=== PATIENT | male | born 1960 | race Caucasian/White ===

== ENCOUNTER → 2017-09-14 | Outpatient (CLI) | payer OTHER, SELFPAY ==
--- NOTE | 2017-09-14 10:12 | Diagnostic Imaging Report ---
TECHNIQUE: Computed tomography imaging of the LEFT SHOULDER was performed WITHOUT injected contrast. COMPARISON: None available. HISTORY: Pain FINDINGS: Comminuted fracture of the proximal humerus with impacted mildly angulated fracture of the humeral neck. Mildly displaced fracture greater tuberosity without significant angulation. Nondisplaced fracture adjacent to the lesser tuberosity. Small glenohumeral joint effusion. Soft tissue stranding about the shoulder. The acromioclavicular joint is intact. IMPRESSION: Comminuted fracture of the proximal humerus as above with dominant impacted fracture of the humeral neck. Signed by: Dr. Vernon Babb M.D. on 09/14/2017 10:08 AM
== END ==
LOC: CT 08:57
PROVIDERS: ATTEND Specialist
DX: S42.232A 3-part fracture of surgical neck of left humerus, initial encounter for closed fracture (principal)

== ENCOUNTER 2017-09-26 09:29 | Observation (INO) | payer OTHER ==
[2017-09-22 15:15] LABS: ANION GAP 14.3 mmol/L (8-16); BLOOD UREA NITROGEN 20 mg/dL (7-26); BUN/CREATININE RATIO 22 (6-25); CALCIUM 9.3 mg/dL (8.4-10.2); CARBON DIOXIDE 27 mmol/L (22-29); CHLORIDE 103 mmol/L (98-107); CREATININE, SERUM 0.92 mg/dL (0.72-1.25); EST GLOMERULAR FILTRATION RATE > 60 ML/MIN (60-); GLUCOSE 153 mg/dL (74-118); POTASSIUM 4.3 mmol/L (3.5-5.1); SODIUM 140 mmol/L (136-145)
[~2017-09-26] VITALS: Ht 172.7 cm; Wt 131.5 kg
[2017-09-26] VITALS (8 sets, daily range): BP systolic 141–170; BP diastolic 69–94
[~2017-09-26 09:29] MED LIST: CEFAZOLIN SOD 2 GM/D5W 50ML 50 ML IV ONE; JARDIANCE PO; LOSARTAN POTASS25 MG PO; METFORMIN HCL500 M2 PO; NOVOLOG100 UNIT/1 SQ; TRESIBA SC; VICTOZA 3-0.6 MG/0.1 PO
--- OUTSIDE RECORDS SUMMARY | 2017-09-26 09:31 | XMS REPORT ---
[facility] Address Unknown Phone Unavailable Care Team Providers Care Food Editor Name Role Phone LORENZO ROWE Unavailable Unavailable Problems This patient has no known problems. Allergies, Adverse Reactions, Alerts This patient has no known allergies or adverse reactions. Medications This patient has no known medications. Results Test Description Test Time Test Comments Text Results Atomic Results Result Comments CT SHOULDER LEFT WO [address] [address] Patient Name: KIMMIE HOPPER MR #: [id number] : 1960 Age/Sex: 56/M Req # : [id number] Adm Physician: Ordered by: LORENZO ROWE MD Report #: [id number] Location: CT Room/Bed: Procedure: [id number] CT/CT SHOULDER LEFT WO Exam Date: 09/14/17 Exam Time : 909 REPORT STATUS: Signed TECHNIQUE: Computed tomography imaging of the LEFT SHOULDER was performed WITHOUT injected contrast. COMPARISON : None available. HISTORY: Pain FINDINGS: Comminuted fracture of the proximal humerus with impacted mildly angulated fracture of the humeral neck. Mildly displaced fracture greater tuberosity without significant angulation. Nondisplaced fracture adjacent to the lesser tuberosity. Small glenohumeral joint effusion. Soft tissue stranding about the shoulder. The acromioclavicular joint is intact. IMPRESSION: Comminuted fracture of the proximal humerus as above with dominant impacted fracture of the humeral neck. Signed by: Dr. Tanja Desai M.D. on 09/14/2017 10:08 AM Dictated By: TANJA DESAI MD [id number] Transcribed By: CRISTINA on 09/14/17 1008 COPY TO: LORENZO ROWE MD
--- OUTSIDE RECORDS SUMMARY | 2017-09-26 09:31 | XMS REPORT | Clinical Summary ---
Author Author [facility] Address Unknown Phone Unavailable Care Team Providers Care Electrician Substation Supervisor Name Role Phone Asked, Pcp PCP Unavailable Allergies Active Allergy Reactions Severity Noted Date Comments No Known Drug Allergies 02/06/2016 Current Medications Prescription Sig. Disp. Refills Start End Date Status Date INVOKANA 300 mg tablet TK 1 T PO D 0 01/22/20 Active 16 TRESIBA FLEXTOUCH U-200 3 02/06/20 Active 200 unit/mL (3 mL) 16 insulin pen VICTOZA 3-ABBY 0.6 mg/0.1 INJECT 1.8MG UNDER THE 3 02/06/20 Active mL (18 mg/3 mL) pen SKIN DAILY DIRECTED. 16 injector TITRATION PER INSTRUCTION losartan (COZAAR) 50 MG TK 1 T PO QD 1 01/07/20 Active tablet 16 metFORMIN (GLUCOPHAGE) TK 1 T PO BID 0 01/07/20 Active 1000 MG tablet 16 BD INSULIN PEN NEEDLE UF U UTD FID. 3 02/06/20 Active MINI 31 gauge x 3/16" 16 needle BD INSULIN PEN NEEDLE UF USE QID WITH INSULIN PENS 4 01/07/20 Active SHORT 31 gauge x 5/16" 16 needle Active Problems Problem Noted Date S/P arthroscopy of left knee 02/13/2016 Family History Medical History Relation Name Comments Other Father Joint problems Relation Name Status Comments Father Social History Tobacco Use Types Packs/Day Years Used Date Never Smoker Smokeless Tobacco: Former Chew User Alcohol Use Drinks/Week oz/Week Comments No Sex Assigned at Date Recorded Not on file Last Filed Vital Signs Not on file Plan of Treatment Health Maintenance Due Date Last Done Comments COLONOSCOPY 2012 INFLUENZA VACCINE 02/22/2017 Results Not on fileafter 09/25/2016 Insurance Payer Benefit Subscriber ID Type Phone Address Plan / Group AETNA AETNA xxxxxxxxxx HMO HMO,POS,EP O, [place] [address]
[2017-09-26] MEDS ORDERED: BACITRACIN 50,000 UNIT VIAL ONE (09:36)
[2017-09-26] MEDS ORDERED: BUPIVACAINE 0.5%/EPI 30 ML SDV INJ ONE (09:36)
[2017-09-26] MEDS ORDERED: MUPIROCIN 2% OINT 22 GM TUBE ONE (11:07)
[2017-09-26] MEDS ORDERED: DIPHENHYDRAMINE HCL INJ 50 MG/ML VIAL IM/IV PRN (11:30)
[2017-09-26] MEDS ORDERED: ZOLPIDEM TARTRATE 5 MG TAB PO PRN (11:30)
[2017-09-26] MEDS ORDERED: DOCUSATE SODIUM 100 MG CAP PO PRN (11:30)
[2017-09-26] MEDS ORDERED: HYDROCODONE/APAP 5MG-325MG TAB PO PRN (11:30)
[2017-09-26] MEDS ORDERED: ACETAMINOPHEN 650 MG SUPP PR PRN (11:30)
[2017-09-26] MEDS ORDERED: PROMETHAZINE HCL (IM) 25 MG/ML VIAL INJ PRN (11:30)
[2017-09-26] MEDS ORDERED: ONDANSETRON HCL INJ 2 MG/ML VIAL IV PRN (11:30)
--- OUTSIDE RECORDS SUMMARY | 2017-09-26 12:41 | XMS REPORT | Clinical Summary ---
Author Author [facility] Organization [facility] Address Unknown Phone Unavailable Care Team Providers Care Burr Filer Name Role Phone Asked, Pcp PCP Unavailable [...] AETNA AETNA xxxxxxxxxx HMO HMO,POS,EP O, [place] [address]
[2017-09-26] MEDS: CEFAZOLIN SOD 1 GM VIAL IV SCH ×2 (13:27→21:42)
[2017-09-26] MEDS: ACETAMINOPHEN 1000 MG/100 ML IV SCH ×3 (13:27→23:31)
[2017-09-26] MEDS: SODIUM CHLORIDE 0.9% 1000ML 1,000 ML IV SCH ×2 (13:27→21:42)
[2017-09-26] MEDS ORDERED: LIDOCAINE 2% /EPINEPHRINE 20 ML SDV INJ ONE (13:50)
[2017-09-26] MEDS ORDERED: ROPIVACAINE 0.5% 5 MG/ML 30 ML SDV ONE (13:50)
[2017-09-26] MEDS ORDERED: EPINEPHRINE HCL INJ 1 MG/ML AMP ONE (13:50)
[2017-09-26] MEDS ORDERED: MIDAZOLAM HCL 2 MG/2 ML VIAL ONE (13:51)
[2017-09-26] MEDS ORDERED: FENTANYL CITRATE/PF 100MCG/2 ML INJ ONE (13:51)
[2017-09-26] MEDS ORDERED: CEFAZOLIN SOD 1 GM/NS 50ML 50 ML IV SCH (14:00)
--- NOTE | 2017-09-26 17:15 | Operative Report ---
DATE OF PROCEDURE: September 26, 2017 MARKETING TECHNOLOGY COORDINATOR: Rodriguez Hernandez PA-C The patient was brought to the operating room for induction of anesthesia. Throughout this case, my PA's assistance was necessary for retraction of soft tissue and positioning of the extremity. This allows for efficient and technically successful execution of the operation and is considered medically necessary. PREOPERATIVE DIAGNOSIS: Left proximal humerus fracture. POSTOPERATIVE DIAGNOSIS: Left proximal humerus fracture. PROCEDURE: Open reduction and internal fixation of left proximal humerus * added complexity secondary to body mass index of 44. INDICATIONS: The patient is a 56-year-old gentleman who fell and sustained a varus impacted fracture of his left proximal humerus. There is some displacement of the greater tuberosity. The findings and options have been discussed with the patient and his . We planned on an open reduction and internal fixation. The added challenges due to his weight of nearly 300 pounds and a BMI of 44 was discussed. The patient states he understands and accepts those added risks. DESCRIPTION OF PROCEDURE: The patient was brought to the operating room after receiving a regional block and prophylactic antibiotics. He was placed under general anesthetic and carefully positioned in the beachchair position. Throughout the case, added time and personnel was necessary due to the patient's BMI of 44. His left upper extremity was prepped and draped in a sterile manner. Approximately 10 mL of 0.25% Marcaine with epinephrine was injected into the axillary fold in the location around the incision. A preoperative time out was performed. A slightly more extensile approach was made to the left arm due to his size. The deltopectoral interval was identified and bluntly dissected. Hemostasis was obtained with electrocautery. The cephalic vein was protected and remained patent throughout the case. Soft tissue mobilizations were performed to slightly elevate the deltoid off of the lateral proximal humerus. The fracture site and the fracture hematoma were carefully debrided. A deep self-retaining Hicks Matson retractor was placed. The fracture site was carefully mobilized. A C-arm image intensifier was used to assist in improving the reduction. The greater tuberosity was captured with a towel clamp. This was brought forward and a retention stitch of #2 Ethibond was placed into the myotendinous junction. A [employer]hew precontoured left proximal humerus plate was then fixed onto the proximal humerus. Care was taken to make sure that this was placed properly and not overly elevated. Once this was confirmed, the reduction was further maintained with a reduction clamp. A combination of compression and locking screws was placed distally. All locking screws were placed proximally. Intraoperative x-rays confirmed satisfactory reduction and position of the hardware. There was one distal screw hole left, but this was down into the deltoid insertion. I did not feel that it was necessary. We already had approximately 8 cortices distal to the fracture. After final x-rays were obtained, thorough irrigation was performed with sterile saline. The wound was inspected for any bleeding. Those that were found were electrocauterized. The cephalic vein was again inspected and noted to be patent. The skin was then closed with subcuticular Vicryl and lyle. A sterile bandage and an UltraSling were placed. The patient was extubated and transported to the recovery room in stable condition. Blood loss was approximately 100 mL and at the end of the procedure, all needle and sponge counts were correct. Job#: [id number]
[2017-09-26] MEDS: ASPIRIN 325 MG TAB PO SCH (17:20)
[2017-09-26] MEDS: CELECOXIB 100 MG CAP PO SCH (17:20)
[2017-09-26] MEDS ORDERED: PROPOFOL IV EMULSION 10 MG/ML 20 ML VIAL ONE (17:47)
[2017-09-26] MEDS ORDERED: LIDOCAINE HCL 2% LOCAL INJ 5 ML SDV VIAL INJ ONE (17:47)
[2017-09-26] MEDS ORDERED: DESFLURANE 240 ML BTL INH ONE (17:47)
[2017-09-26] MEDS ORDERED: ONDANSETRON HCL INJ 2 MG/ML VIAL ONE (17:47)
[2017-09-26] MEDS ORDERED: SUCCINYLCHOLINE 200 MG/10 ML SYR ONE (17:47)
[2017-09-26] MEDS ORDERED: ROCURONIUM BROMIDE 10 MG/ML 5ML VIAL ONE (17:47)
[2017-09-26] MEDS: HYDROCODONE/APAP 7.5MG-325MG 1 EA TAB PO PRN (20:00)
[2017-09-27 00:19] VITALS: BP 160/75
[2017-09-27] MEDS: HYDROCODONE/APAP 7.5MG-325MG 1 EA TAB PO PRN ×3 (00:20→08:21)
[2017-09-27] MEDS: KETOROLAC TROMETHAMINE 30 MG/ML VIAL IV PRN ×2 (04:30→11:15)
[2017-09-27 04:36] VITALS: BP 186/88
[2017-09-27] MEDS ORDERED: CLONIDINE HCL 0.1 MG TAB PO PRN (05:00)
[2017-09-27] MEDS: CEFAZOLIN SOD 1 GM VIAL IV SCH (06:00)
[2017-09-27] MEDS: ACETAMINOPHEN 1000 MG/100 ML IV SCH (06:01)
[2017-09-27] MEDS: SODIUM CHLORIDE 0.9% 1000ML 1,000 ML IV SCH (07:30)
[2017-09-27 07:45] VITALS: BP 186/88
[2017-09-27] MEDS ORDERED: METFORMIN HCL 500 MG TAB CR PO SCH (08:00)
[2017-09-27 08:19] VITALS: BP 154/76
[2017-09-27] MEDS: ASPIRIN 325 MG TAB PO SCH (08:21)
[2017-09-27] MEDS: CELECOXIB 100 MG CAP PO SCH (08:21)
[2017-09-27] MEDS ORDERED: INSULIN LISPRO 100 UNIT/1 ML 3ML VIAL SQ SCH (09:00)
[2017-09-27] MEDS ORDERED: LOSARTAN POTASSIUM 25 MG TAB PO SCH (09:00)
[2017-09-27] MEDS ORDERED: CELEBREX100 MG PO (09:48)
[2017-09-27] MEDS ORDERED: ACETAMINOPHEN 1000 MG/100 ML IV PRN (11:30)
== END 2017-09-27 11:19 | disposition home or self-care (01) ==
LOC: OR 09:29 → MED/SURG 12:38
PROVIDERS: ADMIT Specialist; ATTEND Specialist
DX: S42.232A 3-part fracture of surgical neck of left humerus, initial encounter for closed fracture (principal); E11.9 Type 2 diabetes mellitus without complications; I10 Essential (primary) hypertension; W17.89XA Other fall from one level to another, initial encounter; E66.9 Obesity, unspecified; Z68.41 Body mass index [BMI] 40.0-44.9, adult
CPT/HCPCS: 23680; 36415 ×3; 76001; 80048; 82948 ×2; 93005; 97116 ×2; 97161; G0378 ×2; G8978; G8979; J0171; J0690 ×2; J1885; J2001 ×2; J2250; J2405; J2795; J7030

== ENCOUNTER → 2017-11-21 | Outpatient (RCR) | payer OTHER ==
[~2017-11-21] MED LIST changes: -CEFAZOLIN SOD 2 GM/D5W 50ML 50 ML IV ONE; +CELEBREX100 MG PO
== END ==
LOC: PT 11-07 12:06
PROVIDERS: ATTEND Specialist
DX: S42.232D 3-part fracture of surgical neck of left humerus, subsequent encounter for fracture with routine healing (principal); Z47.89 Encounter for other orthopedic aftercare; M25.512 Pain in left shoulder; M25.612 Stiffness of left shoulder, not elsewhere classified; M62.81 Muscle weakness (generalized)
CPT/HCPCS: 97010 ×2; 97110 ×2; 97140; 97161; G8984; G8985

== ENCOUNTER → 2017-12-22 | Outpatient (RCR) | payer OTHER | LOC: PT 11-22 13:59 | PROVIDERS: ATTEND Specialist | DX: S42.232D 3-part fracture of surgical neck of left humerus, subsequent encounter for fracture with routine healing (principal); Z47.89 Encounter for other orthopedic aftercare; M25.612 Stiffness of left shoulder, not elsewhere classified; M62.81 Muscle weakness (generalized) | CPT/HCPCS: 97010; 97110 ×10; 97140 ×6; G8984; G8985 ==

== ENCOUNTER 2018-01-19 14:00 | Outpatient (RCR) | payer OTHER | END 2018-01-21 | LOC: PT 14:00 | PROVIDERS: ATTEND Specialist | DX: S42.232D 3-part fracture of surgical neck of left humerus, subsequent encounter for fracture with routine healing (principal); Z47.89 Encounter for other orthopedic aftercare; M25.512 Pain in left shoulder; M25.612 Stiffness of left shoulder, not elsewhere classified; M62.81 Muscle weakness (generalized) | CPT/HCPCS: 97010; 97110 ×7; 97139; 97140 ×5; G8984; G8985 ==

== ENCOUNTER 2018-02-20 14:00 | Outpatient (RCR) | payer OTHER | END 2018-02-21 | LOC: PT 14:00 | PROVIDERS: ATTEND Specialist | DX: S42.232D 3-part fracture of surgical neck of left humerus, subsequent encounter for fracture with routine healing (principal); Z47.89 Encounter for other orthopedic aftercare; M25.512 Pain in left shoulder; M25.612 Stiffness of left shoulder, not elsewhere classified; M62.81 Muscle weakness (generalized) | CPT/HCPCS: 97110 ×6; 97139; 97140; G8984; G8985 ==

== ENCOUNTER 2018-02-23 13:55 | Outpatient (RCR) | payer OTHER | END 2018-03-24 | LOC: PT 13:55 | PROVIDERS: ATTEND Specialist | DX: S42.232D 3-part fracture of surgical neck of left humerus, subsequent encounter for fracture with routine healing (principal); Z47.89 Encounter for other orthopedic aftercare | CPT/HCPCS: 97110; 97139; G8984; G8986 ==